=== PATIENT | male | born 1960 | race Caucasian/White ===

== ENCOUNTER 2024-07-24 09:42 | Outpatient (CLI) | payer BC, SELFPAY ==
--- NOTE | ~2024-07-24 | XR_ITS ---
XR abdomen/kub 1V Ordering provider: Romero Castellon MD History: . Calcium kidney stone . Comparison: None. FINDINGS: BOWEL: Nonobstructive bowel gas pattern. ORGANOMEGALY: None. SIGNIFICANT PATHOLOGIC CALCIFICATIONS: Calcification is projected over the right side of the pelvis s uggestive of a stone in the bladder or in the distal ureter. No definite kidney stones seen. OTHER: No free air is seen under the diaphragm. Degenerative changes of the spine. Bilateral mild to moderate osteoarthritic change. IMPRESSION: NO ACUTE ABDOMINAL FINDINGS. Highly suggestive stone in the right lower ureter. Reviewed, dictated and finalized at location A.
--- OUTSIDE RECORDS SUMMARY | 2024-07-24 11:12 | XMS_ITS | Referral Summary ---
Author Organization [facility] [address] [facility] 5th [place] [address] Care Team Providers Care Spanish Tutor Name Role Phone Kun Vick MD Primary Care Provider [phone] Alex Baires MD Unavailable [phone] Encounters Date Type Department Care Team Description 06/10/2024 Telephone [facility] [address] [place] [address] [place] [address] Amrik [place], [place] 06/09/2024 2:45 PM GROUND WATER CONTRACTOR Office Visit [facility] [address] [place] [address] Kun Vick MD Mixed hyperlipidemia (Primary Dx); Abdominal aortic aneurysm (AAA) without rupture, unspecified part; Cigarette nicotine dependence without complication; Xerostomia 06/05/2024 9:30 AM GROUND WATER CONTRACTOR - 06/05/2024 11:59 PM GROUND WATER CONTRACTOR Hospital Encounter [facility] [address] [place] [address] Kun Vick MD Diverticulitis Discharge Disposition: Discharge to home or self care 05/08/2024 1:40 PM GROUND WATER CONTRACTOR [facility] [address] [facility] 11th [place] [address] [place] [address] Michelle Brennan PA Xerostomia (Primary Dx) 05/08/2024 Telephone [facility] [address] [facility] 11th [place] [address] [place] [address] Candi Doherty CMA 04/28/2024 9:55 AM GROUND WATER CONTRACTOR - 04/28/2024 1:05 PM GROUND WATER CONTRACTOR Surgery [facility] [place] [address] [place] [address] Alex Baires MD ROBOTIC ASSISTED LAPAROSCOPIC LEFT INGUINAL HERNIA REPAIR WITH MESH 04/28/2024 9:24 AM GROUND WATER CONTRACTOR Anesthesia Event [facility] [place] [address] [place] [address] Yonny Austin MD Bond, Sandra Khan MD 04/28/2024 8:03 AM GROUND WATER CONTRACTOR - 04/28/2024 1:02 PM GROUND WATER CONTRACTOR Hospital Encounter [facility] [place] [address] [place] [address] Alex Baires MD Discharge Disposition: Discharge to home or self care from Last 3 Months Allergies No known active allergies Medications fenofibrate nanocrystallized (TRICOR) 145 mg tablet Take 1 tablet (145 mg total) by mouth daily 3 Active vitamin B complex capsule Take 1 capsule by mouth daily Active cholecalciferol (VITAMIN D-3) 2000 unit tablet daily Active dicyclomine (BENTYL) 20 mg tablet 4 Active Active Problems Problem Noted Date Diagnosed Date Xerostomia 01/28/2024 Assessment & Plan (06/09/2024 3:36 PM GROUND WATER CONTRACTOR): Biopsy and workup negative. Continue as at present Rx Assessment & Plan (01/28/2024 3:02 PM CDT): Etiology unclear. Will begin with laboratory evaluation. May need ENT evaluation as well. Advised to quit smoking. Advised to decrease his caffeine intake. This is likely multifactorial including those as mentioned above as well as CPAP. Renal stone 01/28/2024 Cigarette nicotine dependence without complicati on 01/28/2024 Assessment & Plan (06/09/2024 3:38 PM GROUND WATER CONTRACTOR): Encouraged to stop smoking Assessment & Plan (01/28/2024 3:04 PM CDT): CT was in July. Will need repeated next July Diverticulitis 01/28/2024 Assessment & Plan (01/28/2024 3:04 PM CDT): Has had previous surgery. Did have recent episode. Finished his antibiotics and is feeling well. FESTUS (obstructive sleep apnea) 01/15/2024 Assessment & Plan (01/28/2024 3:02 PM CDT): Wears a CPAP faithfully. Assessment & Plan (01/15/2024 3:01 PM CDT): Due to continued symptoms, the patient will continue CPAP at 5-20 cm water pressure. I have ordered a mask. DME [employer] Abdominal aortic aneurysm (AAA) without rupture 06/22/2023 Overview (06/22/2023): 3.7 cm as of last check (2022) Discovered as incidental finding during renal stone workup Assessment & Plan (01/28/2024 3:02 PM CDT): 3.3 cm at last check will continue to do annually. Left anterior fascicular block 04/08/2019 Incomplete RBBB 04/08/2019 Mixed hyperlipidemia 11/10/2013 Overview (06/22/2023): Last Assessment & Plan: Lipids ordered Cont zetia Last Assessment & Plan: Lipids ordered Cont zetia Assessment & Plan (01/28/2024 3:03 PM CDT): Medication doing well. Primary osteoarthritis of right knee 11/10/2013 Resolved Problems Problem Noted Date Diagnosed Date Resolved Date Snoring 07/02/2023 01/15/2024 Assessment & Plan (07/02/2023 2:48 PM GROUND WATER CONTRACTOR): The patient presents with snoring and extremely morning dry mouth. Per his request, I have ordered a home sleep test and he will follow up here in 3 months. Immunizations Immunization Administration Dates Next Due Influenza, Quadrivalent, Rec ombinant, Egg Free, Preservative Free, Intramuscular 03/28/2022,03/03/2020 Influenza, Quadrivalent, Spl it, Preservative Free, Intramuscular 02/12/2020,04/02/2019 Influenza, Trivalent, IM (MDV) 2012 Influenza, Unspecified 02/28/2023(Deferred: Sofia ent Refused) Pneumococcal Conjugate Pcv20 11/08/2021 Pneumococcal Conjugate, Unspecified 11/08/2021 Tdap 11/08/2021,01/05/2009 ZOSTER Recombinant 07/20/2023 Social History Tobacco Use Types Packs/Day Years Used Date Smoking Tobacco: Every Day Cigarettes 0.5 40 Tobacco Cessation:Ready to Q uit: Not Asked; Counseling Given: Not Answered AUDIT-C Answer Date Recorded Q1: How often do you have a drink containing alc ohol? Monthly or less 04/28/2024 Q2: How many drinks containi ng alcohol do you have on a typical day when you are drinking? 1 or 2 04/28/2024 Q3: How often do you have si x or more drinks on one occasion? Never 04/28/2024 PHQ-2 Answer Date Recorded PHQ-2 Total Score (If total score is 3 or more points, staff should administer the PHQ-9) 0 07/20/2023 Personal Safety Answer Date Recorded Have you ever been in or are you currently in a harmful physical or emotional relationship or is someone making you feel afraid or unsafe? Denies 04/28/2024 Sex and Gender Information Value Date Recorded Sex Assigned at Not on file Legal Sex Male 10:26 AM GROUND WATER CONTRACTOR Gender Identity Not on file Sexual Orientation Not on file Last Filed Vital Signs Vital Sign Reading Time Taken Comments Blood Pressure 136/82 06/09/2024 3:10 PM GROUND WATER CONTRACTOR Pulse 80 06/09/2024 3:10 PM GROUND WATER CONTRACTOR Temperature 36.4 C (97.6 F) 04/28/2024 12:15 PM GROUND WATER CONTRACTOR Respiratory Rate 16 04/28/2024 12:45 PM GROUND WATER CONTRACTOR Oxygen Saturation 94% 04/28/2024 12:45 PM GROUND WATER CONTRACTOR Inhaled Oxygen Concentration - - Weight 117.9 kg (260 lb) 06/09/2024 3:10 PM GROUND WATER CONTRACTOR Height 182.9 cm (6') 06/09/2024 3:10 PM GROUND WATER CONTRACTOR Body Mass Index 35.26 06/09/2024 3:10 PM GROUND WATER CONTRACTOR Plan of Treatment Not on file Medical Devices Implanted Type Area Grease Machine Worker Device Identifier Shelf Expiration Date Model / Serial / Lot [employer] Progrip [id number] Self Fixate Flat Sheet Mesh Surgical Juliet Pet Latex Free [id number] - [id number] Implanted:Qty : 1 on 04/28/2024 by Alex Baires MD at [facility] Mesh Left: Inguinal [employer] [id number] 08/11/2026 [id number] / / [id number] Procedures Procedure Name Priority Date/Time Associated Diagnosis Comments CT ABDOMEN PELVIS W CONTRAST Schedule Routine, Read Routine (OP Routine) 06/05/2024 10:15 AM GROUND WATER CONTRACTOR Diverticulitis POCT CREATININE - DEVICE Routine 06/05/2024 9:44 AM GROUND WATER CONTRACTOR MN AN PROCEDURE PLACEHOLDER Routine 04/28/2024 9:47 AM GROUND WATER CONTRACTOR MN AN ELECTIVE ENDOTRACHEAL AIRWAY Routine 04/28/2024 9:47 AM GROUND WATER CONTRACTOR XI INGUINAL HERNIA REPAIR - LAPAROSCOPIC ROBOTIC 04/28/2024 9:23 AM GROUND WATER CONTRACTOR LEFT INGUINAL HERNIA PSA SCREEN Routine 02/06/2024 9:32 AM CDT Diverticulitis Cigarette nicotine dependence without complication Renal stone Xerostomia FESTUS (obstructive sleep apnea) Abdominal aortic aneurysm (AAA) without rupture, unspecified part Mixed hyperlipidemia CT LUNG CANCER SCREENING Schedule Routine, Read Routine (OP Routine) 08/03/2023 12:26 PM CDT Smoking HM COLONOSCOPY Routine 06/24/2021 from Last 3 Months or Most Recently Relevant to Health Maintenance Results * CT Abdomen Pelvis W Contrast (06/05/2024 10:15 AM GROUND WATER CONTRACTOR) Anatomical Region Laterality Modality Body N/A Computed Tomogra phy 06/05/2024 10:2 1 AM GROUND WATER CONTRACTOR Impressions 06/05/2024 10:21 AM GROUND WATER CONTRACTOR 1. Findings of colonic diverticulosis without findings suggests of diverticulitis. Previously noted fat stranding has resolved 2. Surgical changes of the left inguinal canal without evidence of complication. 3. Stable infrarenal abdominal aortic aneurysm measuring 3.7 cm, unchanged when measured in similar manner and technique. Electronically signed by: Julio Castanon M.D. Narrative 06/05/2024 10:21 AM GROUND WATER CONTRACTOR EXAMINATION: Computed tomography of the abdomen and pelvis with intravenous contrast HISTORY: Recurrent diverticulitis TECHNIQUE: Transaxial computed tomographic images of the abdomen and pelvis were obtained with intravenous contrast according to the standard protocol after the uneventful administration of 93 mL Opti-Ray 350 intravenous contrast. COMPARISON: 02/21/2024 FINDINGS: Lung bases are clear of consolidation. Normal-sized configuration of the liver. There is a hyperenhancing lesion within the left hepatic lobe which measures 1.3 cm, unchanged from prior examination and likely represents a flash filling hemangioma. Gallbladder present without intrahepatic or extrahepatic ductal dilation. The adrenal glands, spleen, and pancreas are unremarkable. There are small splenules present. Symmetric renal cortical enhancement without hydronephrosis. There are a few nonobstructive right-sided renal calculi. There is a left simple renal cyst. No evidence of bowel obstruction. There is colonic diverticulosis. Within the region of inflammatory changes within the left lower quadrant, the fat stranding have resolved. No new areas of inflammation changes are noted. Surgical changes of sigmoid colon resection with reanastomosis is again noted. No focal bladder wall thickening. Prostate is unremarkable. No free fluid. No free air. Surgical changes of the left inguinal canal. Again noted is the infrarenal abdominal aortic aneurysm, which measures up to 3.7 cm, unchanged when measured in similar manner and technique. No acute or aggressive osseous abnormalities. Multilevel degenerative changes of the spine. Procedure Note Julio Castanon MD - 06/05/2024 EXAMINATION: Computed tomography of the abdomen and pelvis with intravenous contrast HISTORY: Recurrent diverticulitis TECHNIQUE: Transaxial computed tomographic images of the abdomen and pelvis were obtained with intravenous contrast according to the standard protocol after the uneventful administration of 93 mL Opti-Ray 350 intravenous contrast. COMPARISON: 02/21/2024 FINDINGS: Lung bases are clear of consolidation. Normal-sized configuration of the liver. There is a hyperenhancing lesion within the left hepatic lobe which measures 1.3 cm, unchanged from prior examination and likely represents a flash filling hemangioma. Gallbladder present without intrahepatic or extrahepatic ductal dilation. The adrenal glands, spleen, and pancreas are unremarkable. There are small splenules present. Symmetric renal cortical enhancement without hydronephrosis. There are a few nonobstructive right-sided renal calculi. There is a left simple renal cyst. No evidence of bowel obstruction. There is colonic diverticulosis. Within the region of inflammatory changes within the left lower quadrant, the fat stranding have resolved. No new areas of inflammation changes are noted. Surgical changes of sigmoid colon resection with reanastomosis is again noted. No focal bladder wall thickening. Prostate is unremarkable. No free fluid. No free air. Surgical changes of the left inguinal canal. Again noted is the infrarenal abdominal aortic aneurysm, which measures up to 3.7 cm, unchanged when measured in similar manner and technique. No acute or aggressive osseous abnormalities. Multilevel degenerative changes of the spine. IMPRESSION: 1. Findings of colonic diverticulosis without findings suggests of diverticulitis. Previously noted fat stranding has resolved 2. Surgical changes of the left inguinal canal without evidence of complication. 3. Stable infrarenal abdominal aortic aneurysm measuring 3.7 cm, unchanged when measured in similar manner and technique. Electronically signed by: Julio Castanon M.D. Kun Vick MD IM CT PROCEDURES Final Resul t * POCT creatinine (06/05/2024 9:44 AM GROUND WATER CONTRACTOR) Creatinine POC 0.9 0.7 - 2.0 mg/dL Blood 06/05/2024 9:44 AM GROUND WATER CONTRACTOR 06/05/2024 9:44 AM GROUND WATER CONTRACTOR us Kun Vick MD LAB POCT ORDERABLES - DEVICE Final Result [facility] Department [place] [address] * MN AN ELECTIVE ENDOTRACHEAL AIRWAY, MN AN PROCEDURE PLACEHOLDER (04/28/2024 9:47 AM GROUND WATER CONTRACTOR) Narrative Tank Haji CRNA - 04/28/2024 9:47 AM GROUND WATER CONTRACTOR Tank Haji CRNA 04/28/2024 9:48 AM Airway Patient location: OR Urgency: elective Indications for airway management: anesthesia Difficult airway: no Staff: Supervising provider: Yonny Austin MD Placed by: LUTE PACKER OR APPLIER: Tank Haji CRNA Emergent airway documentation: Risks and benefits discussed: yes Consent obtained: yes Consent given by: patient Airway prep: Preoxygenated: yes Patient position: sniffing MILS maintained throughout: yes Mask difficulty assessment: 3 - difficult mask (inadequate, unstable or two providers) Spontaneous ventilation during airway: absent Sedation level during airway: deep Final airway details: Final airway type: endotracheal airway Tube type: ETT ETT size: 8.0 mm Cuffed: yes Technique used for successful ETT placement: direct laryngoscopy Devices/Methods used in placement: intubating stylet Insertion site: oral Blade type: Villanueva Blade size: 2 Cormack-Lehane (direct): grade IIa - partial view of glottis Cuff volume: 8 mL Cuff inflated with: air Placement verified by: auscultation and CO2 detection Airway secured with: other (pink tape) Number of attempts: 1 Additional comments: Atraumatic ETT insertion Yonny Austin MD ANESTHESIA ORDERABLES Final Re sult * PSA screen (02/06/2024 9:32 AM CDT) PSA-Total 0.56 <=5.40 ng/mL Comment: Interpretive Data AGE SEX REFERENCE INTERVAL 0 minutes-150 years Female None 0 minutes-49 years Male None 50-59 years Male 0-3.90 60-69 years Male 0-5.40 70-79 years Male 0-6.20 80-150 years Male 0-6.20 The Benoit PSA Total assay procedure was used. Results from different manufacturers or methods may not be comparable. Serial testing should be performed using the same method. Current interpretive data last revised 21. Blood 02/06/2024 9:32 AM CDT 02/06/2024 9:43 AM CDT us Kun Vick MD LAB BLOOD ORDERABLES Final Re sult [facility] Department [place] [address] * CT Lung Cancer Screening (08/03/2023 12:26 PM CDT) Anatomical Region Laterality Modality Chest N/A Computed Tomogra phy 08/03/2023 3:39 PM CDT Narrative 08/03/2023 3:46 PM CDT EXAM DESCRIPTION: CT LUNG CANCER SCREENING REASON FOR STUDY: Screening CT of the chest in a current smoker with a 20 pack year smoking history. Additional history: None. TECHNIQUE: Low dose CT scan of the chest was performed without intravenous contrast using helical scanning technique. The exam extends from the lung apices through the lung bases. Automatic exposure control was used as a dose optimization technique. NOTE: This study was performed for the specific purposes of lung cancer screening and is not an alternative to diagnostic chest CT. RADIATION DOSE: CT dose index volume (CTDIvol) = 2.9 mGy COMPARISON: None available FINDINGS: SMOKING RELATED LUNG DISEASE: Mild respiratory bronchiolitis. Mild bronchial wall thickening consistent with bronchitis. Minimal emphysema. LUNG NODULES: No suspicious pulmonary nodule. CORONARY ARTERY CALCIFICATION: Moderate OTHER: Upper abdomen appears normal. Normal heart size. No pericardial effusion. Atherosclerosis is seen in the great vessels, mild in severity. Normal chest wall. Mild degenerative changes of the spine. IMPRESSION: No suspicious pulmonary nodule. Lung-RADS category 1: Negative. Recommendation: Low dose Screening CT of chest in 12 months. THIS IS AN ELECTRONICALLY VERIFIED FINAL REPORT 08/03/2023 3:46 PM - Electronically signed by Kun Lechuga M.D. KN: [email or web address] Report ID: [id number] Reading Location: [id number] Procedure Note Kun Lechuga MD - 08/03/2023 EXAM DESCRIPTION: CT LUNG CANCER SCREENING REASON FOR STUDY: Screening CT of the chest in a current smoker with a20 pack year smoking history. Additional history: None. TECHNIQUE: Low dose CT scan of the chest was performed without intravenous contrast using helical scanning technique. The exam extends from the lung apices through the lung bases. Automatic exposure control was used as adose optimization technique. NOTE: This study was performed for the specific purposes of lung cancer screening and is not an alternative to diagnostic chest CT. RADIATION DOSE: CT dose index volume (CTDIvol) = 2.9 mGy COMPARISON: None available FINDINGS: SMOKING RELATED LUNG DISEASE: Mild respiratory bronchiolitis. Mild bronchial wall thickening consistent with bronchitis. Minimalemphysema. LUNG NODULES: No suspicious pulmonary nodule. CORONARY ARTERY CALCIFICATION: Moderate OTHER: Upper abdomen appears normal. Normal heart size. No pericardial effusion. Atherosclerosis is seen in the great vessels, mild inseverity. Normal chest wall. Mild degenerative changes of the spine. IMPRESSION: No suspicious pulmonary nodule. Lung-RADS category 1: Negative. Recommendation: Low dose Screening CT of chest in 12 months. THIS IS AN ELECTRONICALLY VERIFIED FINAL REPORT 08/03/2023 3:46 PM - Electronically signed by Kun Lechuga M.D. KN: ODETTE Report ID: [id number] Reading Location: [place] [address] Kun Malik DO IMG CT PROCEDURES Final Result * COLONOSCOPY (06/24/2021) Scribed Colonoscopy Normal Historical Provider HEALTH MAINTENANCE Final Result from Last 3 Months or Most Recently Relevant to Health Maintenance Insurance [facility] [place] Care Teams Spanish Tutor Relationship Specialty [place] [address] [place] [id number] PCP - General Internal Medicine 01/28/24 Alex Baires MD [address] [place] [id number] Consulting Physician General Surgery 04/28/24
--- OUTSIDE RECORDS SUMMARY | 2024-07-24 11:12 | XMS_ITS | Encounter Summary ---
Author Organization [employer] Address [address] [place] [address], [address] [place] [address] Phone Care Team Providers Care Powder Mill Operator Name Role Phone Jabari Tinajero MD Primary Care Provider [phone] Sidney Messer DO Unavailable [phone] Reason for Visit * Reason Comments Med Refill Encounter Details Date Type Department Care Team (Late st Contact Info) Description 03/21/2023 Refill [facility] [place] [address] [place] [address] [address] [place] [address] Aroldo Corona MD [address] [facility] [address] [place] [address] Social History Tobacco Use Types Packs/Day Years Used Date Smoking Tobacco: Never Assessed Sex and Gender Information Value Date Recorded Sex Assigned at Not on file Legal Sex Male 9:54 PM CDT Gender Identity Not on file Sexual Orientation Not on file documented as of this encounter Plan of Treatment Not on file documented as of this encounter Visit Diagnoses Not on filedocumented in this encounter Care Teams Powder Mill Operator Relationship Specialty Start Date End Date Jabari Tinajero MD [address] [place] [address] PCP - General Family Medicine 08/08/22 Sidney Messer DO [address] [facility] [address] [place] [address] Neurology 08/08/22 documented as of this encounter
--- OUTSIDE RECORDS SUMMARY | 2024-07-24 11:12 | XMS_ITS | Clinical Summary ---
Author Organization [facility] Address [address] [place] [address] Care Team Providers Care Lamp Cleaner Name Role Phone Jabari Tinajero MD Primary Care Provider [phone] Aroldo Corona MD Unavailable Allergies No known active allergies Medications Medication Sig Dispensed Refills Start Date End Date Status doxycycline hyclate (PERIOSTAT) 20 MG tablet Take 20 mg by mouth in the morning and 20 mg in the evening. 09/11/2022 Active diclofenac (VOLTAREN) 75 MG EC tablet Take 1 tablet (75 mg) by mouth in the morning and at bedtime. Do not crush, chew, or split 10/16/2022 Active ezetimibe (ZETIA) 10 MG tabletIndications:Mixed hyperlipidemia Take 1 tablet by mouth daily. 90 tablet 3 01/26/2023 Active fenofibrate (TRICOR) 145 MG tabletIndications:Other hyperlipidemia TAKE ONE TABLET BY MOUTH ONCE DAILY 90 tablet 1 07/02/2023 Active Active Problems Problem Noted Date Diagnosed Date Facial paresthesia 01/18/2023 01/18/2023 Hyperreflexia 01/18/2023 01/18/2023 Numbness of tongue 01/18/2023 01/18/2023 Disturbance of salivary secretion 12/06/2022 Assessment & Plan (12/06/2022 1:11 PM CDT): Pt may have Sjogren's per ENT Labs ordered Cont f/u with ENT Lip numbness 06/05/2022 Assessment & Plan (06/05/2022 11:29 AM CHURN DRILLER HELPER): Has seen both ENT and advertising sales agent Labs ordered Will check B12 Hematuria 11/08/2021 Assessment & Plan (01/18/2023 2:27 PM CDT): Ciprofloxacin BID x 7 days Keep up fluid intake Will send for culture Afebrile - no flank pain Pt advised f/u with urology Assessment & Plan (11/08/2021 4:34 PM CDT): Urinalysis ordered Obesity (BMI 35.0-39.9 without comorbidity) 03/15 Assessment & Plan (12/06/2022 1:15 PM CDT): Encouraged weight loss A1c ordered Assessment & Plan (11/08/2021 4:29 PM CDT): A1c ordered Incomplete RBBB 04/08/2019 Left anterior fascicular block 04/08/2019 Encounter for general adult medical examination w/o abnormal findings 07/09/2018 Assessment & Plan (12/06/2022 1:14 PM CDT): PE w/o new concerns Histories reviewed Labs ordered Discussed exercise on a regular basis 3-5 times weekly Recommend healthy diet that is low on carbs Colonoscopy done [address] Mace Assessment & Plan (11/08/2021 4:38 PM CDT): PE w/o concerns Histories reviewed Labs ordered Discussed exercise on a regular basis 3-5 times weekly Recommend healthy diet that is low on carbs Colonoscopy done this year (next in 5 year) Assessment & Plan (07/20/2020 10:28 AM CHURN DRILLER HELPER): PE w/o concerns Histories reviewed Labs ordered Discussed exercise on a regular basis 3-5 times weekly Recommend healthy diet that is low on carbs Colonoscopy due in 2022 (last 2017) Assessment & Plan (07/09/2018 4:24 PM CHURN DRILLER HELPER): PE w/o concerns Histories reviewed Labs ordered Discussed exercise on a regular basis 3-5 times weekly Recommend healthy diet that is low on carbs Colonoscopy done within 12 months Mixed hyperlipidemia 11/10/2013 Assessment & Plan (12/06/2022 1:11 PM CDT): Lipids ordered Cont zetia Assessment & Plan (11/08/2021 4:30 PM CDT): Lipids ordered Cont zetia Assessment & Plan (07/20/2020 10:27 AM CHURN DRILLER HELPER): Will check lipids Cont statin Assessment & Plan (07/09/2018 4:23 PM CHURN DRILLER HELPER): Lipids ordered Ok to do labs in 2-3 months Cont statin Primary osteoarthritis of right knee 11/10/2013 Resolved Problems Problem Noted Date Diagnosed Date Resolved Date Pleurisy 06/01/2020 07/20/2020 Assessment & Plan (06/01/2020 12:44 PM CHURN DRILLER HELPER): Pleuritic chest wall pain Start aleve OTC BID with food x 7-10 days Exam was normal Preoperative examination 04/02/2019 Acute URI 05/18/2018 07/09/2018 Obesity 11/10/2013 04/09/2019 Immunizations Name Administration Dates Next Due COVID Moderna 0.5 mL 12Y+ 06/25/2020 COVID Moderna Bivalent 0.5 mL 12Y+ 03/28/2022 Influenza, recombinant, quadrivalent, egg free, PF 03/28/2022,03/03/2020 Influenza, split virus, quadrivalent, PF 020,04/02/2019 Influenza, split virus, trivalent 2012 Pneumococcal conjugate PCV20 11/08/2021 Tdap 11/08/2021,01/05/2009 Surgical History Surgery Date Site/Laterality Comments SKIN GRAFT HERNIA REPAIR COLON SURGERY 05/14/2011 - 05/13/2012 ANTERIOR CRUCIATE LIGAMENT REPAIR Right CYSTOSCOPY 12/20/2021 NECK SURGERY 05/14/2017 - 05/13/2018 TOTAL KNEE REPLACEMENT 05/14/2014 - 05/13/2015 Medical History Medical History Date Comments Diverticulitis Obesity 11/10/2013 Kidney stone HLD (hyperlipidemia) LBBB (left bundle branch block) Family History Medical History Relation Comments Cancer Father bladder Heart disease Father Hypertension Father Cancer Mother bladder Heart disease Mother Hypertension Mother Cancer, Ovarian Sister Relation Status Comments Father Alive Mother Alive Other Sister Social History Tobacco Use Types Packs/Day Years Used Date Smoking Tobacco: Every Day Cigarettes Smokeless Tobacco: Never Tobacco Cessation:Ready to Q uit: Yes; Counseling Given: Yes Alcohol Use Standard Drinks/Week Comments Yes 4 (1 standard drink = 0.6 oz pur e alcohol) PHQ-2 Answer Date Recorded Initial depression screening score: 0 04/11/2023 Exercise Vital Sign Answer Date Recorde d On average, how many days pe r week do you engage in moderate to strenuous exercise (like a brisk walk)? 2 days 07/20/2020 On average, how many minutes do you engage in exercise at this level? 60 min 07/20/2020 Inadequate Housing Answer Date Recorded Social Determinants: Housing (Overall Score Help er) 0 12/23/2018 Sex and Gender Information Value Date Recorded Sex Assigned at Not on file Gender Identity Not on file Sexual Orientation Not on file Job Start Date Occupation Industry Not on file Not on file Not on file Obstetrics History Last Filed Vital Signs Vital Sign Reading Time Taken Comments Blood Pressure 120/70 04/11/2023 12:34 PM CHURN DRILLER HELPER Pulse 66 04/11/2023 12:34 PM CHURN DRILLER HELPER Temperature 36.5 C (97.7 F) 04/11/2023 12:34 PM CHURN DRILLER HELPER Respiratory Rate 14 04/11/2023 12:34 PM CHURN DRILLER HELPER Oxygen Saturation 95% 04/11/2023 12:34 PM CHURN DRILLER HELPER Inhaled Oxygen Concentration - - Weight 111.1 kg (245 lb) 04/11/2023 12:34 PM CHURN DRILLER HELPER Height 182.9 cm (6') 04/11/2023 12:34 PM CHURN DRILLER HELPER Body Mass Index 33.23 04/11/2023 12:34 PM CHURN DRILLER HELPER Plan of Treatment Health Maintenance Due Date Last Done Comments CT Colonography 2005 Cologuard 2005 Fecal Occult Blood 2005 Sigmoidoscopy 2005 Shingles Vaccine (1 of 2) 2010 COVID-19 Vaccine ( season) 2024 03/28/2022, 04/22/2021, 07/23/2020, Additional history exists Influenza Vaccine (#1) 2024 2, 03/03/2020, 02/12/2020, Additional history exists Depression Screening 04/11/2024 04/11/2023 Colonoscopy 12/20/2027 12/19/2017, 12/19/2017 Colorectal Cancer Screening 12/20/2027 DTaP/Tdap/Td Vaccine (3 - Td or Tdap) 11/09/2031 11/08/2021, 01/05/2009 Respiratory Syncytial Virus (RSV) Vaccine 60+ (1 - 1-dose 75+ series) 2035 Pneumococcal Vaccine 50+ Completed 11/08/2021 Hepatitis C Screening Completed 11/22/2021 HPV Vaccine Aged Out No longer eligi ble based on patient's age to complete this topic Hepatitis A Vaccine Aged Out No longe r eligible based on patient's age to complete this topic Hepatitis B Vaccine (For Physician/APC Discussion) Aged Out No longer elig ible based on patient's age to complete this topic Meningococcal Serogroup B Vaccine Aged Out No longer eligible based on patient's age to complete this topic Meningococcal Vaccine Aged Out No carlyle dalila eligible based on patient's age to complete this topic Procedures Procedure Name Priority Date/Time Associated Diagnosis Comments HEPATITIS C ANTIBODY WITH REFLEX Add-On 11/22/2021 8:04 AM CDT Encounter for general adult medical examination w/o abnormal findings LFT elevation COLONOSCOPY DIAGNOSTIC Routine 12/19/2017 from Last 3 Months or Most Recently Relevant to Health Maintenance Results * Hepatitis C Antibody With Reflex (11/22/2021 8:04 AM CDT) Hepatitis C Antibody Negative Negative 11/23/2021 12:56 PM CDT [facility] Blood VENOUS BLOOD SPECIMEN / Unknown Venipuncture / Unknown 11/22/2021 8:04 AM CDT 11/22/2021 8:04 AM CDT Jabari Tinajero MD [facility] BLOOD ORDERA BLES [facility] [address] [place] [address] * COLONOSCOPY DIAGNOSTIC (12/19/2017) Outside Provider SURGERY & PROCEDURES from Last 3 Months or Most Recently Relevant to Health Maintenance Care Teams Lamp Cleaner Relationship Specialty Start Date End Date Jabari Tinajero MD PCP - General 04/06/18 Aroldo Corona MD Referring Provider Orthopedic Surgery 04/02/19
--- OUTSIDE RECORDS SUMMARY | 2024-07-24 11:12 | XMS_ITS | Clinical Summary ---
Author Organization [facility] Address [address] [place] [address] Care Team Providers Care Turpentine Distiller Name Role Phone Physician, Not [facility] Primary Care Provider Unavailable Allergies No known active allergies Medications Fenofibrate (TRICOR) 145 MG PO Tab Take 1 Tab by mouth once per day. 07/28/2022 Active Active Problems Problem Noted Date Diagnosed Date Numbness of tongue 01/18/2023 Hyperreflexia 01/18/2023 Facial paresthesia 01/18/2023 Disturbance of salivary secretion 12/06/2022 Overview (03/29/2023): Last Assessment & Plan: Pt may have Sjogren's per ENT Labs ordered Cont f/u with ENT Lip numbness 06/05/2022 Overview (03/29/2023): Last Assessment & Plan: Has seen both ENT and manager voice Labs ordered Will check B12 Hematuria 11/08/2021 Overview (03/29/2023): Last Assessment & Plan: Ciprofloxacin BID x 7 days Keep up fluid intake Will send for culture Afebrile - no flank pain Pt advised f/u with urology Obesity (BMI 35.0-39.9 without comorbidity) 03/15 Overview (03/29/2023): Last Assessment & Plan: Encouraged weight loss A1c ordered Left anterior fascicular block 04/08/2019 Incomplete RBBB 04/08/2019 Angio-edema 10/21/2015 Primary osteoarthritis of right knee 11/10/2013 Mixed hyperlipidemia 11/10/2013 Overview (03/29/2023): Last Assessment & Plan: Lipids ordered Cont zetia Social History Tobacco Use Types Packs/Day Years Used Date Smoking Tobacco: Never Assessed Sex and Gender Information Value Date Recorded Sex Assigned at Not on file Legal Sex Male 1:32 PM BROWNING PROCESSOR Gender Identity Not on file Sexual Orientation Not on file Last Filed Vital Signs Vital Sign Reading Time Taken Comments Blood Pressure 138/66 03/29/2023 2:34 PM BROWNING PROCESSOR Pulse 75 03/29/2023 2:34 PM BROWNING PROCESSOR Temperature 37.1 C (98.7 F) 03/29/2023 2:34 PM BROWNING PROCESSOR Respiratory Rate 12 03/29/2023 2:34 PM BROWNING PROCESSOR Oxygen Saturation 96% 03/29/2023 2:34 PM BROWNING PROCESSOR Inhaled Oxygen Concentration - - Weight 113.4 kg (250 lb) 03/29/2023 2:34 PM BROWNING PROCESSOR Height 185.4 cm (6' 1 ) 03/29/2023 2:34 PM BROWNING PROCESSOR Body Mass Index 32.98 03/29/2023 2:34 PM BROWNING PROCESSOR Plan of Treatment Health Maintenance Due Date Last Done Comments HCV Screen 1960 Depression Screening 1972 FLEXIBLE SIGMOIDOSCOPY 1978 Physical 1978 CHOLESTEROL SCREENING 1995 GLUCOSE SCREENING 2004 COLONOSCOPY 2005 Colorectal Cancer Screening 2005 FIT Colorectal Cancer Screening 2005 FIT-DNA - Cologuard 2005 Zoster Vaccines (1 of 2) 2010 COVID-19 Vaccine ( season) 2024 03/28/2022, 04/22/2021, 07/23/2020, Additional history exists FLU VACCINE (#1) 01/13/2024 03/28/2022, , 02/12/2020, Additional history exists DTaP/Tdap/Td Vaccines (3 - Td or Tdap) 11/09/2031 11/08/2021, 01/05/2009 Pneumococcal: Pediatric/ High Risk Adult 18-64 Aged Out 11/08/2021 No longer eligible based on patient's age to complete this topic Insurance [facility] PPO Care Teams Turpentine Distiller Relationship Specialty Start Date End Date Physician, Mar[facility] PCP - General 03/29/23
--- OUTSIDE RECORDS SUMMARY | 2024-07-24 11:12 | XMS_ITS | Encounter Summary ---
Author Organization [facility] Address [address] [place] [address], [address] [place] [address] Phone Care Team Providers Care Door Technician Name Role Phone Jabari Tinajero MD Primary Care Provider [phone] Sidney Messer DO Unavailable [phone] Reason for Visit * Reason Comments Med Refill Encounter Details Date Type Department Care Team (Late st Contact Info) Description 12/17/2022 Refill [facility] [place] [address] [place] [address] [address] [place] [address] Aroldo Corona MD [address] [facility] [address] [place] [address] Disorder of rotator cuff <Right side>; Impingement syndrome of shoulder region <Right side> Social History Tobacco Use Types Packs/Day Years Used Date Smoking Tobacco: Never Assessed Sex and Gender Information Value Date Recorded Sex Assigned at Not on file Legal Sex Male 9:54 PM CDT Gender Identity Not on file Sexual Orientation Not on file documented as of this encounter Plan of Treatment Not on file documented as of this encounter Visit Diagnoses Diagnosis Disorder of rotator cuff <Right side> Impingement syndrome of shoulder region <Right side> documented in this encounter Care Teams Door Technician Relationship Specialty Start Date End Date Jabari Tinajero MD [address] [place] [address] PCP - General Family Medicine 08/08/22 Sidney Messer DO [address] [facility] [address] [place] [address] Neurology 08/08/22 documented as of this encounter
--- OUTSIDE RECORDS SUMMARY | 2024-07-24 11:12 | XMS_ITS | Encounter Summary ---
Author Organization [facility] Address [address] [place] [address] Care Team Providers Care Engineering Associate Name Role Phone Jabari Tinajero MD Primary Care Provider [phone] Aroldo Corona MD Unavailable Aroldo Corona MD Unavailable Encounter Details Date Type Department Care Team (Late st Contact Info) Description 05/17/2018 Telephone [facility] [address] [facility] [place] [address] [place] [address] [facility] [place] [address] [place] [address] Social History Tobacco Use Types Packs/Day Years Used Date Smoking Tobacco: Never Assessed PHQ-2 Answer Date Recorded PHQ-2 Score 0 05/18/2018 Sex and Gender Information Value Date Recorded Sex Assigned at Not on file Gender Identity Not on file Sexual Orientation Not on file Job Start Date Occupation Industry Not on file Not on file Not on file documented as of this encounter Plan of Treatment Not on file documented as of this encounter Visit Diagnoses Not on filedocumented in this encounter Additional Health Concerns Infection Onset Date Last Indicated Resolved Time COVID/Flu (rule out) 04/04/2023 04/04/2023 023 12:07 PM LEGAL EXAMINER COVID/Flu (rule out) 04/04/2023 04/04/2023 023 7:37 AM LEGAL EXAMINER documented as of this encounter Care Teams Engineering Associate Relationship Specialty Start Date End Date Jabari Tinajero MD PCP - General 04/06/18 Aroldo Corona MD Referring Provider Orthopedic Surgery 04/02/19 9 Aroldo Corona MD Referring Provider Orthopedic Surgery 04/02/19 documented as of this encounter
--- OUTSIDE RECORDS SUMMARY | 2024-07-24 11:12 | XMS_ITS | Referral Summary ---
Author Organization [facility] Address [address] [place] [address] Care Team Providers Care Thrasher Feeder Name Role Phone Physician, Not [facility] Primary Care Provider Unavailable Allergies No known [...] & Plan: Has seen both ENT and staff services manager Labs ordered Will check B12 Hematuria 11/08/2021 [...] on file Legal Sex Male 1:32 PM BINDER TECHNICIAN Gender Identity Not on file Sexual Orientation Not on file Last Filed Vital Signs Vital Sign Reading Time Taken Comments Blood Pressure 138/66 03/29/2023 2:34 PM BINDER TECHNICIAN Pulse 75 03/29/2023 2:34 PM BINDER TECHNICIAN Temperature 37.1 C (98.7 F) 03/29/2023 2:34 PM BINDER TECHNICIAN Respiratory Rate 12 03/29/2023 2:34 PM BINDER TECHNICIAN Oxygen Saturation 96% 03/29/2023 2:34 PM BINDER TECHNICIAN Inhaled Oxygen Concentration - - Weight 113.4 kg (250 lb) 03/29/2023 2:34 PM BINDER TECHNICIAN Height 185.4 cm (6' 1 ) 03/29/2023 2:34 PM BINDER TECHNICIAN Body Mass Index 32.98 03/29/2023 2:34 PM BINDER TECHNICIAN Plan of Treatment Not on file Insurance [facility] PPO Care Teams Thrasher Feeder Relationship Specialty Start Date End Date Physician, [facility] PCP - General 03/29/23
--- OUTSIDE RECORDS SUMMARY | 2024-07-24 11:12 | XMS_ITS ---
Author Organization [facility]. Address [address] [place] [address] Care Team Providers Care Auto Machinist Name Role Phone Lior SAENZ, Jabari Primary Care Provider LEIF Harris [phone] Encounters Encounter Location Date Provider Diagnosis [facility] [address] [place] [address] 05/25/2023 LEIF ALVARADO Plan Of Treatment No Information Progress Notes * ASHLEY BRAMBILAOB:1960 (64 yo M)Acc No.[id number]:05/25/2023 Patient: Edmond MA QAMAR :1960 A ge:63 Y S ex:Male Address:[address] [place] [address], [address] * * Date:
--- OUTSIDE RECORDS SUMMARY | 2024-07-24 11:12 | XMS_ITS | Clinical Summary ---
Author Organization [facility] Address [address] [place] [address], [address] [place] [address] Phone Care Team Providers Care Gastroenterology Physician Name Role Phone Jabari Tinajero MD Primary Care Provider [phone] Sidney Messer DO Unavailable [phone] Allergies No known active allergies Medications fenofibrate (Tricor) 145 MG tablet Take 145 mg by mouth in the morning. 07/28/2022 Active ezetimibe (Zetia) 10 MG tablet Take 10 mg by mouth in the morning. 07/28/2022 Active doxycycline (Periostat) 20 MG tablet Active pilocarpine (Salagen) 5 MG tablet Take 5 mg by mouth in the morning. 03/28/2023 Active amitriptyline (Elavil) 50 MG tablet Take 50 mg by mouth in the morning. 09/03/2023 Active diclofenac (Voltaren) 75 MG EC tabletIndicatio ns:Disorder of rotator cuff <Unspecified side>,Disorder of rotator cuff <Right side>,Impingeme nt syndrome of shoulder region <Right side>,Bursitis of right shoulder,Should er pain <Right side>,Pain in left shoulder,Bursit is of left shoulder TAKE 1 TABLET(75 MG) BY MOUTH IN THE MORNING AND AT BEDTIME. DO NOT CRUSH, CHEW, OR SPLIT 60 tablet 10/22/2023 Active Active Problems Problem Noted Date Diagnosed Date Abdominal aortic aneurysm without rupture 2023 Overview (09/12/2023): 3.7 cm as of last check (2022) Discovered as incidental finding during renal stone workup Immunizations Immunization Administration Dates Next Due Influenza, injectable, quadrivalent, preservativ e free 02/12/2020,04/02/2019 Influenza, recombinant, quad rivalent, injectable, preservative free 03/28/2022,03/03/2020 Influenza, seasonal, injectable 2012 Moderna SARS-CoV-2 Vaccination 03/28/2022 Pneumococcal Conjugate, Unspecified 11/08/2021 Tdap 11/08/2021,01/05/2009 Zoster, Recombinant 07/20/2023 Social History Tobacco Use Types Packs/Day Years Used Date Smoking Tobacco: Never Smokeless Tobacco: Never Tobacco Cessation:Counseling Given: Not Answered Alcohol Use Standard Drinks/Week Comments Never 0 (1 standard drink = 0.6 oz pur e alcohol) Sex and Gender Information Value Date Recorded Sex Assigned at Not on file Legal Sex Male 9:54 PM CDT Gender Identity Not on file Sexual Orientation Not on file Last Filed Vital Signs Vital Sign Reading Time Taken Comments Blood Pressure - - Pulse - - Temperature - - Respiratory Rate - - Oxygen Saturation - - Inhaled Oxygen Concentration - - Weight 111 kg (245 lb) 09/12/2023 1:38 PM CDT Height 182.9 cm (6') 09/12/2023 1:38 PM CDT Body Mass Index 33.23 09/12/2023 1:38 PM CDT Plan of Treatment Health Maintenance Due Date Last Done Comments Pneumococcal Vaccine: 65+ Ye ars (1 of 4 - PCV) 2010 11/08/2021 Influenza Vaccine (#1) 2024 2, 03/03/2020, 02/12/2020, Additional history exists Insurance [employer] Care Teams Gastroenterology Physician Relationship Specialty Start Date End Date Jabari Tinajero MD [address] [place] [address] PCP - General Family Medicine 08/08/22 Sidney Messer DO [address] [place] [address] Neurology 08/08/22
--- OUTSIDE RECORDS SUMMARY | 2024-07-24 11:12 | XMS_ITS | Clinical Summary ---
Author Organization [facility] Address [address] [place] [address] Care Team Providers Care Assembly Manager Name Role Phone Jabari Tinajero MD Primary Care Provider [phone] Allergies No known active allergies Medications rosuvastatin (CRESTOR) 10 MG tablet Take 10 mg by mouth daily. Active predniSONE (DELTASONE) 10 MG tabletIndicatio ns:Left facial swelling Take 4 tablets daily for 3 days. Then 3 tabs daily for 3 days. Then 2 tabs daily for 3 days. Then 1 tab daily for 3 days. Then stop. 30 tablet 0 04/07/2015 Active Social History Tobacco Use Types Packs/Day Years Used Date Smoking Tobacco: Every Day Sex and Gender Information Value Date Recorded Sex Assigned at Not on file Legal Sex Male 1:44 AM PRINT AND PATTERN DESIGNER Gender Identity Not on file Sexual Orientation Not on file Last Filed Vital Signs Vital Sign Reading Time Taken Comments Blood Pressure 140/91 04/07/2015 1:45 PM PRINT AND PATTERN DESIGNER Pulse 65 04/07/2015 1:45 PM PRINT AND PATTERN DESIGNER Temperature 36.5 C (97.7 F) 04/07/2015 1:45 PM PRINT AND PATTERN DESIGNER Respiratory Rate 18 04/07/2015 1:45 PM PRINT AND PATTERN DESIGNER Oxygen Saturation 94% 04/07/2015 1:45 PM PRINT AND PATTERN DESIGNER Inhaled Oxygen Concentration - - Weight - - Height - - Body Mass Index - - Plan of Treatment Health Maintenance Due Date Last Done Comments CT Colonography 1960 Colonoscopy 1960 Colorectal Cancer Screening 1960 FIT / gFOBT Colorectal Cancer Screening 1960 FIT-DNA (Cologuard) 1960 Flexible Sigmoidoscopy 1960 Annual Wellness Exam with PCP (Rolling Yr) 1962 Hepatitis C Screening 1978 Zoster Vaccine (Shingles) (1 of 2) 2010 Influenza Vaccine (#1) 2023 , 03/03/2020, 02/12/2020, Additional history exists COVID-19 Vaccine ( season) 2024 03/28/2022, 04/22/2021, 07/23/2020, Additional history exists DTaP,Tdap,and Td Vaccines (2 - Td or Tdap) 11/09/2031 11/08/2021 Pneumococcal Vaccine: 50+ Years Completed 11/08/2021 Pneumococcal Vaccine: Peds (0-5 Yrs) or At-Risk Patients (6-49 Yrs) Aged Out 11/08/2021 No longer eligible based on patient's age to complete this topic Hepatitis A Vaccines Aged Out No long er eligible based on patient's age to complete this topic Hepatitis B Vaccines Aged Out No long er eligible based on patient's age to complete this topic Meningococcal Vaccine Aged Out No carlyle dalila eligible based on patient's age to complete this topic Care Teams Assembly Manager Relationship Specialty Start Date End Date Jabari Tinajero MD PCP - General Family Medicine 04/07/15
--- OUTSIDE RECORDS SUMMARY | 2024-07-24 11:12 | XMS_ITS | Patient Health Record ---
Author Organization [facility]. Address [address] [place] [id number] Care Team Providers Care Title Supervisor Name Role Phone Lior SAENZ, Jabari Primary Care Provider LEIF Harris Unavailable [phone] Allergies No Known Allergies Reason For Referral No Information Medications Medication SIG (Take, Route, Frequency, Duration) Notes Start Date End Date Status Diazepam 5 MG 1 tablet as needed O rally 1 hour prior to MRI for 1 dose days 07/11/2022 Active Vitamin B 12 Active Doxycycline Hyclate 20 MG Oral for 30 Active Ezetimibe 10 MG Oral for 90 Ac tive Vitamin D Active Social History Tobacco Use: Social History Observation Description Date Details (start date - stop date) Current Smoker NA - NA Tobacco Use/Smoking Question Answer Notes Are you a current smoker How often do you smoke cigarettes? every day How many cigarettes a day do you smoke? 11-20 How soon after you wake up do you smoke your fir st cigarettes? 6-30 minutes Problems Problem Type SNOMED Code ICD Code Onset Dates Problem Status W/U Status Risk Notes Problem Numbness of tongue (10855774) Numbness of tongue (R20.0) Active confirmed Problem Facial paresthesia (12492020) Facial paresthesia (R20.2) Active confirmed Problem Hyperreflexia (47111652) Hyperreflexia (R29.2) Active confirmed Plan Of Treatment Pending Test Test Name Order Date SANTOSH Comprehensive Panel 06/22/2022 SANTOSH Comprehensive Panel 08/24/2022 Insurance Providers Payer Name Payer Address Payer Phone Subscriber Number Group Number Insured Name Patient Relationship to Insured Coverage Start Date Coverage End Date [facility] [address] [place], [place] [id number] QAMAR BRAMBILA Self - patient is the insured Medical (General) History Medical History History ICD Code High Cholesterol Surgical History Surgery Date(Month/Year) Broken Neck 2017 Knee Replacement 2014 Bowel Removal 2011 Hospitalization History Reason Date(Month/Year) See Above
--- OUTSIDE RECORDS SUMMARY | 2024-07-24 11:12 | XMS_ITS | Referral Summary ---
Author Organization [facility] Address [address] [place] [address] Care Team Providers Care Facing Baster Jumpbasting Name Role Phone Jabari Tinajero MD Primary Care Provider [phone] Aroldo Corona MD Unavailable Allergies No known [...] 06/05/2022 Assessment & Plan (06/05/2022 11:29 AM HOSIERY MATER): Has seen both ENT and outsole molder Labs ordered Will check B12 Hematuria 11/08/2021 [...] year) Assessment & Plan (07/20/2020 10:28 AM HOSIERY MATER): PE w/o concerns Histories reviewed Labs ordered Discussed exercise on a regular basis 3-5 times weekly Recommend healthy diet that is low on carbs Colonoscopy due in 2022 (last 2017) Assessment & Plan (07/09/2018 4:24 PM HOSIERY MATER): PE w/o concerns Histories reviewed Labs ordered Discussed exercise on a regular basis 3-5 times weekly Recommend healthy diet that is low on carbs Colonoscopy done within 12 months Mixed hyperlipidemia 11/10/2013 Assessment & Plan (12/06/2022 1:11 PM CDT): Lipids ordered Cont zetia Assessment & Plan (11/08/2021 4:30 PM CDT): Lipids ordered Cont zetia Assessment & Plan (07/20/2020 10:27 AM HOSIERY MATER): Will check lipids Cont statin Assessment & Plan (07/09/2018 4:23 PM HOSIERY MATER): Lipids ordered Ok to do labs in 2-3 months Cont statin Primary osteoarthritis of right knee 11/10/2013 Resolved Problems Problem Noted Date Diagnosed Date Resolved Date Pleurisy 06/01/2020 07/20/2020 Assessment & Plan (06/01/2020 12:44 PM HOSIERY MATER): Pleuritic chest wall pain Start aleve OTC [...] 2012 Pneumococcal conjugate PCV20 11/08/2021 Tdap 11/08/2021,01/05/2009 Social History Tobacco Use Types Packs/Day Years [...] file Not on file Not on file Last Filed Vital Signs Vital Sign Reading Time Taken Comments Blood Pressure 120/70 04/11/2023 12:34 PM HOSIERY MATER Pulse 66 04/11/2023 12:34 PM HOSIERY MATER Temperature 36.5 C (97.7 F) 04/11/2023 12:34 PM HOSIERY MATER Respiratory Rate 14 04/11/2023 12:34 PM HOSIERY MATER Oxygen Saturation 95% 04/11/2023 12:34 PM HOSIERY MATER Inhaled Oxygen Concentration - - Weight 111.1 kg (245 lb) 04/11/2023 12:34 PM HOSIERY MATER Height 182.9 cm (6') 04/11/2023 12:34 PM HOSIERY MATER Body Mass Index 33.23 04/11/2023 12:34 PM HOSIERY MATER Plan of Treatment Not on file Procedures Procedure Name Priority Date/Time Associated Diagnosis [...] Negative Negative 11/23/2021 12:56 PM CDT [facility] Blood VENOUS BLOOD SPECIMEN / Unknown Venipuncture / Unknown 11/22/2021 8:04 AM CDT 11/22/2021 8:04 AM CDT Jabari Tinajero MD [facility] LAB BLOOD ORDERA BLES [facility] [address] [place] [address] * COLONOSCOPY DIAGNOSTIC (12/19/2017) Outside Provider SURGERY & PROCEDURES from Last 3 Months or Most Recently Relevant to Health Maintenance Care Teams Facing Baster Jumpbasting Relationship Specialty Start Date End Date Jabari Tinajero MD PCP - General 04/06/18 Aroldo Corona MD Referring Provider Orthopedic Surgery 04/02/19
--- OUTSIDE RECORDS SUMMARY | 2024-07-24 11:13 | XMS_ITS | Clinical Summary ---
Author Organization [facility] [address] Address [address] [place] [address] Care Team Providers Care Food Prep Worker Name Role Phone Kun Vick MD Primary Care Provider [phone] Alex Baires MD Unavailable Allergies No known active allergies Medications fenofibrate [...] 01/28/2024 Assessment & Plan (06/09/2024 3:36 PM LANDS RESOURCE MANAGER): Biopsy and workup negative. Continue as at [...] 01/28/2024 Assessment & Plan (06/09/2024 3:38 PM LANDS RESOURCE MANAGER): Encouraged to stop smoking Assessment & Plan [...] 01/15/2024 Assessment & Plan (07/02/2023 2:48 PM LANDS RESOURCE MANAGER): The patient presents with snoring and extremely morning dry mouth. Per his request, I have ordered a home sleep test and he will follow up here in 3 months. Encounters Date Type Department Care Team Description 06/10/2024 Telephone [facility] [address] [facility] [place] [address] Keira Rowley, BALJIT 06/09/2024 2:45 PM LANDS RESOURCE MANAGER Office Visit [facility] [address] [facility] [address] [facility] [place] [address] Kun Vick MD Mixed hyperlipidemia (Primary Dx); Abdominal aortic aneurysm (AAA) without rupture, unspecified part; Cigarette nicotine dependence without complication; Xerostomia 06/05/2024 9:30 AM LANDS RESOURCE MANAGER - 06/05/2024 11:59 PM LANDS RESOURCE MANAGER Hospital Encounter [facility] ([facility]) [address] [place] [address] Kun Vick MD Diverticulitis Discharge Disposition: Discharge to home or self care 05/08/2024 1:40 PM LANDS RESOURCE MANAGER Office Visit [facility] ([facility]) - [facility] ENT [address] [facility] [address] [place] [address] [place] [address] Michelle Brennan PA Xerostomia (Primary Dx) 05/08/2024 Telephone [facility] ([facility] - [facility] ENT [address] [facility] [address] [place] [address] [place] [address] Candi Doherty CMA 04/28/2024 9:55 AM LANDS RESOURCE MANAGER - 04/28/2024 1:05 PM LANDS RESOURCE MANAGER Surgery [facility] OR [address] [place] [address] Alex Baires MD ROBOTIC ASSISTED LAPAROSCOPIC LEFT INGUINAL HERNIA REPAIR WITH MESH 04/28/2024 9:24 AM LANDS RESOURCE MANAGER Anesthesia Event [facility] OR [address] [place] [address] Yonny Austin MD Bond, Jory Steven, MD 04/28/2024 8:03 AM LANDS RESOURCE MANAGER - 04/28/2024 1:02 PM LANDS RESOURCE MANAGER Hospital Encounter [facility] [place] [address] [place] [phone] Alex Baires MD Discharge Disposition: Discharge to home or self care from Last 3 Months Immunizations Immunization Administration Dates Next Due Influenza, Quadrivalent, Rec ombinant, Egg Free, Preservative Free, Intramuscular 03/28/2022,03/03/2020 Influenza, Quadrivalent, Spl it, Preservative Free, Intramuscular 02/12/2020,04/02/2019 Influenza, Trivalent, IM (MDV) 2012 Influenza, Unspecified 02/28/2023(Deferred: Sofia ent Refused) Pneumococcal Conjugate Pcv20 11/08/2021 Pneumococcal Conjugate, Unspecified 11/08/2021 Tdap 11/08/2021,01/05/2009 ZOSTER Recombinant 07/20/2023 Surgical History Surgery Date Site/Laterality Comments LAPAROSCOPIC BOWEL RESECTION 05/14/2013 - 05/13/2014 8 intestine removed for diverticulitis HERNIA REPAIR 05/14/1963 - 05/13/1964 Left Open left inguinal hernia repair KNEE ARTHROSCOPY NECK SURGERY 05/14/2013 - 05/13/2014 broke neck SKIN GRAFT 05/14/1974 - 05/13/1975 from [facility] INCISION AND DRAINAGE infected elbow JOINT REPLACEMENT 05/14/2009 - 05/13/2010 Right knee COLONOSCOPY 2024 Medical History Medical History Date Comments Diverticulosis Hyperlipidemia Septic joint (HCC) Hernia, abdominal Sleep apnea uses CPAP AAA (abdominal aortic aneurysm) monitoring Family History Medical History Relation Name Comments Cancer Father Aaron [place] Cancer Mother Anya [place] Relation Name Status Comments Father Aaron [place] Mother Anya [place] Social History Tobacco Use Types Packs/Day Years [...] on file Legal Sex Male 10:26 AM LANDS RESOURCE MANAGER Gender Identity Not on file Sexual Orientation Not on file Obstetrics History Last Filed Vital Signs Vital Sign Reading Time Taken Comments Blood Pressure 136/82 06/09/2024 3:10 PM LANDS RESOURCE MANAGER Pulse 80 06/09/2024 3:10 PM LANDS RESOURCE MANAGER Temperature 36.4 C (97.6 F) 04/28/2024 12:15 PM LANDS RESOURCE MANAGER Respiratory Rate 16 04/28/2024 12:45 PM LANDS RESOURCE MANAGER Oxygen Saturation 94% 04/28/2024 12:45 PM LANDS RESOURCE MANAGER Inhaled Oxygen Concentration - - Weight 117.9 kg (260 lb) 06/09/2024 3:10 PM LANDS RESOURCE MANAGER Height 182.9 cm (6') 06/09/2024 3:10 PM LANDS RESOURCE MANAGER Body Mass Index 35.26 06/09/2024 3:10 PM LANDS RESOURCE MANAGER Plan of Treatment Health Maintenance Due Date Last Done Comments Hepatitis C Screening 1960 Hepatitis B Screening 1978 Regular Well Visit/Exam 18-64 1978 Zoster Vaccine (2 of 2) 09/14/2023 07/20/2023 Covid-19 Vaccine (2023-2 5 season) 2024 03/28/2022, 03/28/2022, 04/22/2021, Additional history exists Influenza Vaccine (#1) 2024 , 03/03/2020, 02/12/2020, Additional history exists Depression Screening 07/19/2024 07/20/2023, 06/22/19 Lung Cancer Screening 08/03/2024 08/03/2023 Prostate Cancer Screening-PSA 02/05/2026 02/06/2024 Colon Cancer Screening-Colonoscopy 06/24/20262021 DTaP/Tdap/Td Vaccine (3 - Td or Tdap) 11/09/2031 11/08/2021, 01/05/2009 Pneumococcal vaccine <65 Completed 11/08/2021, 10/13 Medical Devices Implanted Type Area Acetone Recovery Worker Device Identifier Shelf Expiration Date Model / Serial / Lot [employer] Progrip [id number] Self Fixate Flat Sheet Mesh Surgical Juliet Pet Latex Free [id number] - [id number] Implanted:Qty : 1 on 04/28/2024 by Alex Baires MD at [facility] ([place], [place]) Mesh Left: Inguinal [employer] [id number] 08/11/2026 [id number] / / [id number] Procedures Procedure Name Priority Date/Time Associated Diagnosis Comments CT ABDOMEN PELVIS W CONTRAST Schedule Routine, Read Routine (OP Routine) 06/05/2024 10:15 AM LANDS RESOURCE MANAGER Diverticulitis POCT CREATININE - DEVICE Routine 06/05/2024 9:44 AM LANDS RESOURCE MANAGER OK AN PROCEDURE PLACEHOLDER Routine 04/28/2024 9:47 AM LANDS RESOURCE MANAGER OK AN ELECTIVE ENDOTRACHEAL AIRWAY Routine 04/28/2024 9:47 AM LANDS RESOURCE MANAGER XI INGUINAL HERNIA REPAIR - LAPAROSCOPIC ROBOTIC 04/28/2024 9:23 AM LANDS RESOURCE MANAGER LEFT INGUINAL HERNIA PSA SCREEN Routine 02/06/2024 [...] Abdomen Pelvis W Contrast (06/05/2024 10:15 AM LANDS RESOURCE MANAGER) Anatomical Region Laterality Modality Body N/A Computed Tomogra phy 06/05/2024 10:2 1 AM LANDS RESOURCE MANAGER Impressions 06/05/2024 10:21 AM LANDS RESOURCE MANAGER 1. Findings of colonic diverticulosis without findings suggests of diverticulitis. Previously noted fat stranding has resolved 2. Surgical changes of the left inguinal canal without evidence of complication. 3. Stable infrarenal abdominal aortic aneurysm measuring 3.7 cm, unchanged when measured in similar manner and technique. Electronically signed by: Julio Castanon M.D. Narrative 06/05/2024 10:21 AM LANDS RESOURCE MANAGER EXAMINATION: Computed tomography of the abdomen and [...] by: Julio Castanon M.D. Kun Vick MD IMG CT PROCEDURES Final Resul t * POCT creatinine (06/05/2024 9:44 AM LANDS RESOURCE MANAGER) Creatinine POC 0.9 0.7 - 2.0 mg/dL Blood 06/05/2024 9:44 AM LANDS RESOURCE MANAGER 06/05/2024 9:44 AM LANDS RESOURCE MANAGER us Kun Vick MD LAB POCT ORDERABLES - DEVICE Final Result [facility] Department of Laboratories [place], [place] [id number] * OK AN ELECTIVE ENDOTRACHEAL AIRWAY, OK AN PROCEDURE PLACEHOLDER (04/28/2024 9:47 AM LANDS RESOURCE MANAGER) Narrative Tank Haji CRNA - 04/28/2024 9:47 AM LANDS RESOURCE MANAGER Tank Haji CRNA 04/28/2024 9:48 AM Airway Patient location: OR Urgency: elective Indications for airway management: anesthesia Difficult airway: no Staff: Supervising provider: Yonny Austin MD Placed by: VETERINARIAN HELPER: Tank Haji CRNA Emergent airway documentation: Risks [...] attempts: 1 Additional comments: Atraumatic ETT insertion us Yonny Austin MD ANESTHESIA ORDERABLES Final Re [...] MD LAB BLOOD ORDERABLES Final Re sult [facility] Department [place] [address] * CT Lung Cancer Screening (08/03/2023 12:26 [...] Kun Lechuga M.D. KN: ODETTE Report ID: [id number] Reading Location: [id number] Procedure Note Kun Lechuga MD - 08/03/2023 [...] Kun Lechuga M.D. KN: ODETTE Report ID: [id number] Reading Location: [place] [address] Kun Malik DO IMG CT PROCEDURES Final Result * COLONOSCOPY (06/24/2021) Scribed Colonoscopy Normal Historical Provider HEALTH MAINTENANCE Final Result from Last 3 Months or Most Recently Relevant to Health Maintenance Insurance [facility] [place] Care Teams Food Prep Worker Relationship Specialty [place] [address] [place] [id number] PCP - General Internal Medicine 01/28/24 Alex Baires MD [address] [place] [id number] Consulting Physician General Surgery 04/28/24
== END 2024-07-24 09:43 | disposition home or self-care (01) ==
LOC: ANHIMG 09:51
PROVIDERS: Visit Provider Urology
DX: N20.0 Calculus of kidney (principal)
CPT/HCPCS: 74018